=== PATIENT | female | born 1940 | race Caucasian/White ===

== ENCOUNTER 2020-07-17 19:28 | Inpatient (IN) ==
[2020-07-17] MEDS ORDERED: Naloxone 0.4 MG/ML INJ IVP PRN (23:20)
[2020-07-17] MEDS ORDERED: 0.9 % Sodium Chloride 500 ML IVC ONE (23:23)
[2020-07-18 00:32] LABS: Hematocrit 33.8 % (35.3-44.9); Hemoglobin 11.5 g/dL (11.5-15.4); INR 1.4; Immature Platelets 6.1 % (1.1-6.1); Mean Corpuscular Hemoglobin 30.5 pg (28.0-33.3); Mean Corpuscular Volume 89.7 fL (83.0-100.0); Mean Platelet Volume 10.4 fL (9.4-12.4); Prothrombin Time 15.7 Seconds (9.4-12.1); Red Blood Count 3.77 M/mcL (3.82-4.97); Red Cell Distribution Width 13.1 % (11.5-14.5); White Blood Count 3.3 K/mcL (4.3-11.1)
[2020-07-18 00:35] LABS: Activated Partial Thrombo Time 36.1 Seconds (26.0-36.0)
[2020-07-18 00:39] LABS: Albumin 3.3 g/dL (3.5-5.7); Albumin/Globulin Ratio 1.1 (1.1-2.2); Bilirubin,Total 1.7 mg/dL (0.3-1.0); Calcium 9.5 mg/dL (8.6-10.3); Globulin 2.9 g/dL (2.4-3.5); Potassium 4.3 mEq/L (3.5-5.1); Total Protein 6.2 g/dL (6.4-8.9)
[2020-07-18] MEDS: 0.9 % Sodium Chloride 1,000 ML IVC SCH ×2 (03:01→15:03)
[2020-07-18 03:23] LABS: Bacteria,Urine Few per hpf (None-Few); Bilirubin,Urine Negative (Negative); Blood,Urine Trace (Negative); Clarity,Urine Clear (Clear); Color,Urine Yellow (Yellow); Glucose,Urine (UA) 50 mg/dL (Normal); Hyaline Casts,Urine Few per lpf (None Seen); Ketones,Urine 10 mg/dL (Negative); Leukocyte Esterase,Urine Large (Negative); Mucus,Urine Few per lpf (None-Few); Nitrite,Urine Negative (Negative); PH,Urine 5.5 pH Units (5.0-8.0); Protein,Urine Negative (Neg-Trace); Specific Gravity,Urine 1.012 (1.010-1.025); Squamous Epithelial Cell,Urine Few per hpf (None-Few); Urobilinogen,Urine Normal (Normal); WBC,Urine 15-30 per hpf (0-3)
[2020-07-18] MEDS: cefTRIAXone 1,000 MG in 0.9 % Sodium Chloride Mini Bag 100 ML IVPB SCH (08:22)
[2020-07-18] MEDS ORDERED: Gadolinium Contrast Agent (WT Based) IV PRN (10:39)
[2020-07-18] MEDS ORDERED: Dextrose Gel 15 GM/37.5 ML TUBE PO PRN (11:46)
[2020-07-18] MEDS ORDERED: *HR* Dextrose 50 % in Water (Vial) 50 ML VIAL ONE (12:02)
[2020-07-18] MEDS: *HR* Dextrose 50 % in Water (Vial) 50 ML VIAL IVP PRN (12:39)
[2020-07-18] MEDS: Dextrose Gel 15 GM/37.5 ML TUBE PO PRN (15:35)
[2020-07-18 16:00] LABS: Calcium 9.5 mg/dL (8.6-10.3)
[2020-07-19] MEDS: 0.9 % Sodium Chloride 1,000 ML IVC SCH ×2 (06:06→19:04)
[2020-07-19 06:10] LABS: Thyroid Stimulating Hormone 10.352 mcIU/mL (0.340-5.600)
[2020-07-19] MEDS: ARIPiprazole 2 MG TABLET PO SCH (09:14)
[2020-07-19] MEDS: Aspirin Enteric Coated 81 MG Tablet PO SCH (09:14)
[2020-07-19] MEDS: cefTRIAXone 1,000 MG in 0.9 % Sodium Chloride Mini Bag 100 ML IVPB SCH (09:14)
[2020-07-19 09:17] LABS: Basophils % 0.3 %; Eosinophils # 0.2 K/mcL (0.0-0.6); Eosinophils % 7.7 %; Hemoglobin 11.1 g/dL (11.5-15.4); Lymphocytes # 1.2 K/mcL (0.6-4.6); Lymphocytes % 40.8 %; Mean Corpuscular HGB Conc 33.6 g/dL (31.6-35.5); Mean Corpuscular Hemoglobin 30.2 pg (28.0-33.3); Mean Corpuscular Volume 89.9 fL (83.0-100.0); Mean Platelet Volume 10.4 fL (9.4-12.4); Monocytes # 0.5 K/mcL (0.0-1.3); Monocytes % 15.7 %; Neutrophils # 1.1 K/mcL (1.6-8.9); Platelet Count 141 K/mcL (140-400); Red Blood Count 3.67 M/mcL (3.82-4.97); Segmented Neutrophils % 35.5 %
[2020-07-19] MEDS: carvediloL 25 MG TABLET PO SCH ×2 (09:19→19:06)
[2020-07-19 09:41] LABS: BUN/Creatinine Ratio 13 (6-26); Blood Urea Nitrogen 12 mg/dL (8-23); Carbon Dioxide 21 mEq/L (23-29); Chloride 99 mEq/L (98-107); Potassium 4.6 mEq/L (3.5-5.1); Sodium 128 mEq/L (136-145); eGFR For African Americans > 60 (> 60)
[2020-07-19 09:42] LABS: Glucose 68 mg/dL (70-105); Osmolality,Calculated 264 (280-300); eGFR For Non-African Americans 58 (> 60)
[2020-07-19 10:30] LABS: Alanine Aminotransferase 9 Units/L (7-52); Albumin 3.2 g/dL (3.5-5.7); Albumin/Globulin Ratio 1.2 (1.1-2.2); Alkaline Phosphatase 43 Units/L (34-104); Aspartate Amino Transferase 31 Units/L (13-39); Globulin 2.6 g/dL (2.4-3.5); Total Protein 5.8 g/dL (6.4-8.9)
[2020-07-19] MEDS ORDERED: 0.9 % Sodium Chloride 500 ML ONE (17:49)
[2020-07-19] MEDS ORDERED: Albumin 25% 25gram/100mL 25 GM/100 ML IV.SOLN IVPB ONE (19:39)
[2020-07-19] MEDS: Mirtazapine 15 MG TABLET PO SCH (19:56)
[2020-07-20 07:16] LABS: Basophils % 0.3 %; Mean Corpuscular Volume 92.1 fL (83.0-100.0); Mean Platelet Volume 10.6 fL (9.4-12.4)
[2020-07-20 07:17] LABS: Eosinophils # 0.2 K/mcL (0.0-0.6); Eosinophils % 6.6 %; Hematocrit 34.9 % (35.3-44.9); Hemoglobin 11.3 g/dL (11.5-15.4); Immature Granulocytes % 0.3 % (0-4); Immature Platelets 6.1 % (1.1-6.1); Lymphocytes % 36.7 %; Mean Corpuscular HGB Conc 32.4 g/dL (31.6-35.5); Mean Corpuscular Hemoglobin 29.8 pg (28.0-33.3); Monocytes % 13.1 %; Platelet Count 147 K/mcL (140-400); Red Blood Count 3.79 M/mcL (3.82-4.97); White Blood Count 3.4 K/mcL (4.3-11.1)
[2020-07-20 07:18] LABS: Lymphocytes # 1.3 K/mcL (0.6-4.6); Monocytes # 0.5 K/mcL (0.0-1.3); Neutrophils # 1.5 K/mcL (1.6-8.9)
[2020-07-20] MEDS: D5% in Water 1,000 ML IVC PRN (07:20)
[2020-07-20 07:33] LABS: BUN/Creatinine Ratio 10 (6-26); Blood Urea Nitrogen 9 mg/dL (8-23); Calcium 8.8 mg/dL (8.6-10.3); Carbon Dioxide 21 mEq/L (23-29); Chloride 102 mEq/L (98-107); Glucose 63 mg/dL (70-105); Osmolality,Calculated 267 (280-300); Potassium 4.6 mEq/L (3.5-5.1); Sodium 130 mEq/L (136-145); eGFR For African Americans > 60 (> 60); eGFR For Non-African Americans > 60 (> 60)
[2020-07-20] MEDS: cefTRIAXone 1,000 MG in 0.9 % Sodium Chloride Mini Bag 100 ML IVPB SCH (09:50)
[2020-07-20] MEDS: ARIPiprazole 2 MG TABLET PO SCH (09:51)
[2020-07-20] MEDS: Aspirin Enteric Coated 81 MG Tablet PO SCH (09:53)
[2020-07-20] MEDS: carvediloL 25 MG TABLET PO SCH ×2 (10:05→17:08)
[2020-07-20] MEDS: Ondansetron 4 MG/2 ML VIAL IVP PRN (10:24)
[2020-07-20] MEDS: 0.9 % Sodium Chloride 1,000 ML IVC SCH ×2 (20:35→20:39)
[2020-07-20] MEDS: Mirtazapine 15 MG TABLET PO SCH (20:39)
[2020-07-21] MEDS: D5% in Water 1,000 ML IVC PRN ×2 (00:31→18:59)
[2020-07-21 05:54] LABS: Eosinophils # 0.3 K/mcL (0.0-0.6); Eosinophils % 8.5 %; Hematocrit 32.3 % (35.3-44.9); Hemoglobin 10.8 g/dL (11.5-15.4); Immature Platelets 4.9 % (1.1-6.1); Lymphocytes # 1.5 K/mcL (0.6-4.6); Lymphocytes % 49.2 %; Mean Corpuscular HGB Conc 33.4 g/dL (31.6-35.5); Mean Corpuscular Hemoglobin 30.3 pg (28.0-33.3); Mean Corpuscular Volume 90.7 fL (83.0-100.0); Mean Platelet Volume 10.6 fL (9.4-12.4); Monocytes # 0.5 K/mcL (0.0-1.3); Monocytes % 14.8 %; Platelet Count 133 K/mcL (140-400); Red Blood Count 3.56 M/mcL (3.82-4.97); Segmented Neutrophils % 27.5 %; White Blood Count 3.1 K/mcL (4.3-11.1)
[2020-07-21 05:56] LABS: Neutrophils # 0.9 K/mcL (1.6-8.9)
[2020-07-21 06:06] LABS: BUN/Creatinine Ratio 8 (6-26); Blood Urea Nitrogen 6 mg/dL (8-23); Calcium 8.2 mg/dL (8.6-10.3); Carbon Dioxide 20 mEq/L (23-29); Chloride 100 mEq/L (98-107); Glucose 95 mg/dL (70-105); Osmolality,Calculated 255 (280-300); Potassium 4.1 mEq/L (3.5-5.1); Sodium 124 mEq/L (136-145); eGFR For African Americans > 60 (> 60); eGFR For Non-African Americans > 60 (> 60)
[2020-07-21] MEDS: Aspirin Enteric Coated 81 MG Tablet PO SCH (08:45)
[2020-07-21] MEDS: Ondansetron 4 MG/2 ML VIAL IVP PRN ×2 (08:45→20:34)
[2020-07-21] MEDS: ARIPiprazole 2 MG TABLET PO SCH (08:45)
[2020-07-21] MEDS: cefTRIAXone 1,000 MG in 0.9 % Sodium Chloride Mini Bag 100 ML IVPB SCH (08:46)
[2020-07-21] MEDS: Scopolamine Patch 1.5 MG PATCH.TD72 TD SCH (11:48)
[2020-07-21] MEDS: carvediloL 25 MG TABLET PO SCH ×2 (11:49→20:29)
[2020-07-21 14:06] LABS: % Iron Saturation 24 % (15-50); Iron 52 mcg/dL (50-170); Transferrin 154 mg/dL (203-362)
[2020-07-21 14:21] LABS: Immature Reticulocyte % 4.4 % (11.0-38.0); Retculocyte # 0.03 M/mcL (0.05-0.10); Reticulocyte % 0.8 % (1.6-2.8)
[2020-07-21 14:51] LABS: Folate 17.8 ng/mL (3.0-16.0)
[2020-07-21] MEDS: Mirtazapine 15 MG TABLET PO SCH (20:34)
[2020-07-21] MEDS: 0.9 % Sodium Chloride 1,000 ML IVC SCH (20:35)
[2020-07-22 00:49] LABS: Red Cell Distribution Width 12.7 % (11.5-14.5)
[2020-07-22 00:50] LABS: Basophils % 0.3 %; Eosinophils # 0.2 K/mcL (0.0-0.6); Eosinophils % 6.7 %; Hematocrit 35.1 % (35.3-44.9); Hemoglobin 12.2 g/dL (11.5-15.4); Immature Platelets 4.1 % (1.1-6.1); Lymphocytes # 1.6 K/mcL (0.6-4.6); Lymphocytes % 44.1 %; Mean Corpuscular HGB Conc 34.8 g/dL (31.6-35.5); Mean Corpuscular Volume 89.3 fL (83.0-100.0); Mean Platelet Volume 10.5 fL (9.4-12.4); Monocytes # 0.5 K/mcL (0.0-1.3); Monocytes % 13.5 %; Neutrophils # 1.3 K/mcL (1.6-8.9); Platelet Count 150 K/mcL (140-400); Red Blood Count 3.93 M/mcL (3.82-4.97); Segmented Neutrophils % 35.4 %; White Blood Count 3.6 K/mcL (4.3-11.1)
[2020-07-22 01:07] LABS: BUN/Creatinine Ratio 5 (6-26); Blood Urea Nitrogen 4 mg/dL (8-23); Calcium 8.1 mg/dL (8.6-10.3); Carbon Dioxide 20 mEq/L (23-29); Chloride 99 mEq/L (98-107); Glucose 89 mg/dL (70-105); Osmolality,Calculated 256 (280-300); Potassium 3.8 mEq/L (3.5-5.1); Sodium 125 mEq/L (136-145); eGFR For African Americans > 60 (> 60); eGFR For Non-African Americans > 60 (> 60)
[2020-07-22 01:10] LABS: Albumin 3.1 g/dL (3.5-5.7); Albumin/Globulin Ratio 1.2 (1.1-2.2); Bilirubin,Direct 0.2 mg/dL (0.0-0.2); Bilirubin,Indirect 0.5 mg/dL (0.0-1.0); Bilirubin,Total 0.7 mg/dL (0.3-1.0); Globulin 2.5 g/dL (2.4-3.5); Total Protein 5.6 g/dL (6.4-8.9)
[2020-07-22] MEDS: D5% in Water 1,000 ML IVC PRN (05:25)
[2020-07-22] MEDS: 0.9 % Sodium Chloride 1,000 ML IVC SCH ×2 (05:49→15:51)
[2020-07-22] MEDS: Aspirin Enteric Coated 81 MG Tablet PO SCH (09:03)
[2020-07-22] MEDS: Ondansetron 4 MG/2 ML VIAL IVP PRN (09:03)
[2020-07-22] MEDS: ARIPiprazole 2 MG TABLET PO SCH (09:04)
[2020-07-22] MEDS: carvediloL 25 MG TABLET PO SCH ×2 (09:04→19:48)
[2020-07-22] MEDS: cefTRIAXone 1,000 MG in 0.9 % Sodium Chloride Mini Bag 100 ML IVPB SCH (09:05)
[2020-07-22] MEDS ORDERED: Azithromycin 250 MG TABLET PO SCH (16:15)
[2020-07-22] MEDS ORDERED: levoFLOXacin 750 MG/150 ML 750 MG/150 ML BAG IVPB SCH (18:15)
[2020-07-22] MEDS: Mirtazapine 15 MG TABLET PO SCH (21:10)
[2020-07-22] MEDS: Ipratropium/Albuterol Neb 3 ML IH SCH (22:37)
[2020-07-23] MEDS: Ipratropium/Albuterol Neb 3 ML IH SCH ×4 (04:11→22:34)
[2020-07-23 05:42] LABS: Basophils % 0.3 %; Eosinophils # 0.2 K/mcL (0.0-0.6); Eosinophils % 7.2 %; Hematocrit 32.1 % (35.3-44.9); Hemoglobin 10.9 g/dL (11.5-15.4); Immature Platelets 6.2 % (1.1-6.1); Lymphocytes # 1.6 K/mcL (0.6-4.6); Lymphocytes % 49.1 %; Mean Corpuscular Hemoglobin 30.3 pg (28.0-33.3); Mean Corpuscular Volume 89.2 fL (83.0-100.0); Mean Platelet Volume 10.5 fL (9.4-12.4); Monocytes # 0.5 K/mcL (0.0-1.3); Monocytes % 15.4 %; Neutrophils # 0.9 K/mcL (1.6-8.9); Platelet Count 133 K/mcL (140-400); Red Cell Distribution Width 12.5 % (11.5-14.5); White Blood Count 3.2 K/mcL (4.3-11.1)
[2020-07-23 05:59] LABS: BUN/Creatinine Ratio 5 (6-26); Blood Urea Nitrogen 4 mg/dL (8-23); Calcium 7.8 mg/dL (8.6-10.3); Carbon Dioxide 20 mEq/L (23-29); Chloride 96 mEq/L (98-107); Glucose 74 mg/dL (70-105); Osmolality,Calculated 252 (280-300); Potassium 4.1 mEq/L (3.5-5.1); Sodium 123 mEq/L (136-145); eGFR For African Americans > 60 (> 60); eGFR For Non-African Americans > 60 (> 60)
[2020-07-23] MEDS: Ondansetron 4 MG/2 ML VIAL IVP PRN ×2 (09:21→22:46)
[2020-07-23] MEDS: carvediloL 25 MG TABLET PO SCH ×2 (09:23→18:55)
[2020-07-23] MEDS: Aspirin Enteric Coated 81 MG Tablet PO SCH (09:23)
[2020-07-23] MEDS: ARIPiprazole 2 MG TABLET PO SCH (09:23)
[2020-07-23] MEDS: 0.9 % Sodium Chloride 1,000 ML IVC SCH ×2 (09:27→23:41)
[2020-07-23] MEDS: Mirtazapine 15 MG TABLET PO SCH (20:19)
[2020-07-23] MEDS: levoFLOXacin 750 MG/150 ML 750 MG/150 ML BAG IVPB SCH (20:19)
[2020-07-23] MEDS: Dextrose Gel 15 GM/37.5 ML TUBE PO PRN (22:24)
[2020-07-23] MEDS: *HR* Dextrose 50 % in Water (Vial) 50 ML VIAL IVP PRN (23:00)
[2020-07-24 01:03] LABS: Basophils % 0.3 %; Red Cell Distribution Width 12.9 % (11.5-14.5)
[2020-07-24 01:05] LABS: Eosinophils # 0.2 K/mcL (0.0-0.6); Eosinophils % 6.1 %; Hematocrit 33.3 % (35.3-44.9); Hemoglobin 11.2 g/dL (11.5-15.4); Immature Granulocytes % 0.3 % (0-4); Immature Platelets 5.8 % (1.1-6.1); Lymphocytes # 1.5 K/mcL (0.6-4.6); Lymphocytes % 48.1 %; Mean Corpuscular HGB Conc 33.6 g/dL (31.6-35.5); Mean Corpuscular Hemoglobin 30.4 pg (28.0-33.3); Mean Corpuscular Volume 90.5 fL (83.0-100.0); Mean Platelet Volume 10.5 fL (9.4-12.4); Monocytes # 0.5 K/mcL (0.0-1.3); Monocytes % 16.8 %; Neutrophils # 0.9 K/mcL (1.6-8.9); Platelet Count 144 K/mcL (140-400); Red Blood Count 3.68 M/mcL (3.82-4.97); Segmented Neutrophils % 28.4 %; White Blood Count 3.1 K/mcL (4.3-11.1)
[2020-07-24 01:23] LABS: BUN/Creatinine Ratio 5 (6-26); Blood Urea Nitrogen 4 mg/dL (8-23); Calcium 7.9 mg/dL (8.6-10.3); Carbon Dioxide 24 mEq/L (23-29); Chloride 98 mEq/L (98-107); Glucose 65 mg/dL (70-105); Osmolality,Calculated 259 (280-300); Potassium 3.7 mEq/L (3.5-5.1); Sodium 127 mEq/L (136-145); eGFR For African Americans > 60 (> 60); eGFR For Non-African Americans > 60 (> 60)
[2020-07-24] MEDS: *HR* Dextrose 50 % in Water (Vial) 50 ML VIAL IVP PRN (04:10)
[2020-07-24] MEDS: Ipratropium/Albuterol Neb 3 ML IH SCH ×4 (04:28→20:19)
[2020-07-24] MEDS: D5% in Water 1,000 ML IVC PRN (06:02)
[2020-07-24] MEDS: carvediloL 25 MG TABLET PO SCH ×2 (07:40→16:21)
[2020-07-24] MEDS: ARIPiprazole 2 MG TABLET PO SCH (07:40)
[2020-07-24] MEDS: Aspirin Enteric Coated 81 MG Tablet PO SCH (07:40)
[2020-07-24] MEDS: Scopolamine Patch 1.5 MG PATCH.TD72 TD SCH (07:41)
[2020-07-24] MEDS: Ondansetron 4 MG/2 ML VIAL IVP PRN ×2 (10:04→21:21)
[2020-07-24] MEDS: 0.9 % Sodium Chloride 1,000 ML IVC SCH (16:22)
[2020-07-24] MEDS: levoFLOXacin 750 MG/150 ML 750 MG/150 ML BAG IVPB SCH (21:21)
[2020-07-24] MEDS: Mirtazapine 15 MG TABLET PO SCH (21:21)
[2020-07-25 01:44] LABS: Basophils % 0.3 %; Eosinophils # 0.3 K/mcL (0.0-0.6); Eosinophils % 7.5 %; Hematocrit 31.9 % (35.3-44.9); Hemoglobin 10.8 g/dL (11.5-15.4); Immature Granulocytes % 0.3 % (0-4); Lymphocytes # 1.6 K/mcL (0.6-4.6); Mean Corpuscular HGB Conc 33.9 g/dL (31.6-35.5); Mean Corpuscular Volume 88.6 fL (83.0-100.0); Mean Platelet Volume 10.5 fL (9.4-12.4); Monocytes # 0.5 K/mcL (0.0-1.3); Monocytes % 15.3 %; Platelet Count 113 K/mcL (140-400); Red Cell Distribution Width 12.6 % (11.5-14.5); Segmented Neutrophils % 28.6 %; White Blood Count 3.3 K/mcL (4.3-11.1)
[2020-07-25 02:05] LABS: BUN/Creatinine Ratio 4 (6-26); Blood Urea Nitrogen 3 mg/dL (8-23); Calcium 7.6 mg/dL (8.6-10.3); Carbon Dioxide 19 mEq/L (23-29); Chloride 96 mEq/L (98-107); Glucose 71 mg/dL (70-105); Osmolality,Calculated 249 (280-300); Potassium 3.9 mEq/L (3.5-5.1); Sodium 122 mEq/L (136-145); eGFR For African Americans > 60 (> 60); eGFR For Non-African Americans > 60 (> 60)
[2020-07-25] MEDS: Ipratropium/Albuterol Neb 3 ML IH SCH ×4 (04:12→22:12)
[2020-07-25] MEDS: Aspirin Enteric Coated 81 MG Tablet PO SCH (07:59)
[2020-07-25] MEDS: ARIPiprazole 2 MG TABLET PO SCH (07:59)
[2020-07-25] MEDS: carvediloL 25 MG TABLET PO SCH ×2 (07:59→16:17)
[2020-07-25] MEDS: Cyanocobalamin (B-12) 1,000 MCG TABLET PO SCH (10:00)
[2020-07-25] MEDS: D5% in Water 1,000 ML IVC PRN ×2 (11:27→22:45)
[2020-07-25] MEDS ORDERED: polyethylene glycoL 3350 17 GM POWD.PACK PO PRN (18:23)
[2020-07-25 19:08] LABS: BUN/Creatinine Ratio 4 (6-26); Blood Urea Nitrogen 3 mg/dL (8-23); Calcium 7.6 mg/dL (8.6-10.3); Carbon Dioxide 22 mEq/L (23-29); Chloride 92 mEq/L (98-107); Glucose 83 mg/dL (70-105); Magnesium 0.7 mg/dL (1.6-2.6); Osmolality,Calculated 246 (280-300); Phosphorous 2.9 mg/dL (2.7-4.5); Potassium 3.7 mEq/L (3.5-5.1); Sodium 120 mEq/L (136-145); eGFR For African Americans > 60 (> 60); eGFR For Non-African Americans > 60 (> 60)
[2020-07-25 19:17] LABS: VBG Ionized Calcium 1.02 mmol/L (1.15-1.35)
[2020-07-25] MEDS: Mirtazapine 15 MG TABLET PO SCH (22:45)
[2020-07-25] MEDS: Ondansetron 4 MG/2 ML VIAL IVP PRN (23:08)
[2020-07-26 01:58] LABS: Alpha 2 Globulin (PEP) 0.62 g/dL (0.48-1.05); Beta Globulin (PEP) 0.56 g/dL (0.48-1.10)
[2020-07-26 03:15] LABS: Mean Corpuscular HGB Conc 33.8 g/dL (31.6-35.5)
[2020-07-26 03:16] LABS: Immature Reticulocyte % 4.8 % (11.0-38.0); Retculocyte # 0.04 M/mcL (0.05-0.10)
[2020-07-26 03:17] LABS: Hematocrit 34.9 % (35.3-44.9); Hemoglobin 11.8 g/dL (11.5-15.4); Immature Platelets 6.8 % (1.1-6.1); Mean Corpuscular Hemoglobin 29.9 pg (28.0-33.3); Mean Corpuscular Volume 88.6 fL (83.0-100.0); Mean Platelet Volume 10.5 fL (9.4-12.4); Red Blood Count 3.94 M/mcL (3.82-4.97); Red Cell Distribution Width 12.3 % (11.5-14.5); White Blood Count 3.9 K/mcL (4.3-11.1)
[2020-07-26 03:36] LABS: BUN/Creatinine Ratio 4 (6-26); Blood Urea Nitrogen 3 mg/dL (8-23); Calcium 7.9 mg/dL (8.6-10.3); Carbon Dioxide 20 mEq/L (23-29); Chloride 89 mEq/L (98-107); Glucose 84 mg/dL (70-105); Osmolality,Calculated 242 (280-300); Potassium 3.5 mEq/L (3.5-5.1); Sodium 118 mEq/L (136-145); eGFR For African Americans > 60 (> 60); eGFR For Non-African Americans > 60 (> 60)
[2020-07-26 03:50] LABS: Thyroid Stimulating Hormone 17.826 mcIU/mL (0.340-5.600)
[2020-07-26 03:57] LABS: Triiodothyronine (T3) Total 0.86 ng/mL (0.87-1.78)
[2020-07-26] MEDS: Ipratropium/Albuterol Neb 3 ML IH SCH ×4 (04:14→21:57)
[2020-07-26] MEDS ORDERED: 0.9 % Sodium Chloride 1,000 ML IVC SCH (08:15)
[2020-07-26] MEDS: Ondansetron 4 MG/2 ML VIAL IVP PRN ×2 (08:59→20:09)
[2020-07-26] MEDS ORDERED: levoFLOXacin 750 MG TABLET PO SCH (09:00)
[2020-07-26] MEDS: ARIPiprazole 2 MG TABLET PO SCH (09:46)
[2020-07-26] MEDS: Aspirin Enteric Coated 81 MG Tablet PO SCH (09:46)
[2020-07-26] MEDS: carvediloL 25 MG TABLET PO SCH ×2 (09:46→17:22)
[2020-07-26] MEDS: Cyanocobalamin (B-12) 1,000 MCG TABLET PO SCH (09:47)
[2020-07-26 09:53] LABS: IFE Reflexed NOT DONE
[2020-07-26] MEDS ORDERED: Tolvaptan 15 MG TABLET PO ONE (09:56)
[2020-07-26] MEDS: 0.9 % Sodium Chloride 1,000 ML IVC SCH (10:32)
[2020-07-26] MEDS: Metoclopramide 10 MG/2 ML VIAL IVP SCH ×2 (11:57→17:22)
[2020-07-26] MEDS: Mirtazapine 15 MG TABLET PO SCH (20:09)
[2020-07-27 01:14] LABS: Hematocrit 29.4 % (35.3-44.9); Hemoglobin 10.3 g/dL (11.5-15.4); Mean Corpuscular Hemoglobin 30.6 pg (28.0-33.3); Mean Corpuscular Volume 87.2 fL (83.0-100.0); Mean Platelet Volume 10.7 fL (9.4-12.4); Red Blood Count 3.37 M/mcL (3.82-4.97); Red Cell Distribution Width 12.3 % (11.5-14.5)
[2020-07-27 01:15] LABS: BUN/Creatinine Ratio 4 (6-26); Blood Urea Nitrogen 3 mg/dL (8-23); Calcium 7.5 mg/dL (8.6-10.3); Carbon Dioxide 21 mEq/L (23-29); Chloride 90 mEq/L (98-107); Glucose 80 mg/dL (70-105); Magnesium 1.5 mg/dL (1.6-2.6); Osmolality,Calculated 238 (280-300); Phosphorous 3.1 mg/dL (2.7-4.5); Potassium 3.6 mEq/L (3.5-5.1); Sodium 116 mEq/L (136-145); eGFR For African Americans > 60 (> 60); eGFR For Non-African Americans > 60 (> 60)
[2020-07-27] MEDS ORDERED: Tolvaptan 15 MG TABLET PO ONE (01:19)
[2020-07-27] MEDS ORDERED: 0.9 % Sodium Chloride 500 ML ONE (01:23)
[2020-07-27] MEDS: 0.9 % Sodium Chloride 500 ML IVC ONE ×2 (01:26→02:44)
[2020-07-27] MEDS: *HR* Dextrose 50 % in Water (Vial) 50 ML VIAL IVP PRN (03:27)
[2020-07-27] MEDS: D5% in Water 1,000 ML IVC PRN (03:29)
[2020-07-27] MEDS ORDERED: 0.9 % Sodium Chloride 1,000 ML ONE (04:10)
[2020-07-27] MEDS ORDERED: 0.9 % Sodium Chloride 1,000 ML IVC ONE ×2 (04:16→06:12)
[2020-07-27] MEDS: Ipratropium/Albuterol Neb 3 ML IH SCH ×4 (04:16→21:06)
[2020-07-27] MEDS ORDERED: Hydrocortisone Sodium Succ 100 MG/2 ML VIAL IVP ONE (06:12)
[2020-07-27] MEDS: Levothyroxine Sodium 100 MCG VIAL IVP SCH (06:31)
[2020-07-27] MEDS ORDERED: Ringers Solution, Lactated 1,000 ML IVC SCH (07:30)
[2020-07-27] MEDS: Metoclopramide 10 MG/2 ML VIAL IVP SCH (07:52)
[2020-07-27] MEDS: Hydrocortisone Sodium Succ 100 MG/2 ML VIAL IVP SCH ×3 (07:52→23:15)
[2020-07-27] MEDS: Scopolamine Patch 1.5 MG PATCH.TD72 TD SCH (07:52)
[2020-07-27] MEDS ORDERED: Hydrocortisone 10 MG TABLET PO SCH (09:00)
[2020-07-27 10:27] LABS: VBG Ionized Calcium 1.03 mmol/L (1.15-1.35)
[2020-07-27 10:39] LABS: BUN/Creatinine Ratio 5 (6-26); Blood Urea Nitrogen 4 mg/dL (8-23); Calcium 7.8 mg/dL (8.6-10.3); Carbon Dioxide 20 mEq/L (23-29); Chloride 99 mEq/L (98-107); Glucose 100 mg/dL (70-105); Osmolality,Calculated 257 (280-300); Phosphorous 2.8 mg/dL (2.7-4.5); Potassium 3.8 mEq/L (3.5-5.1); Sodium 125 mEq/L (136-145); eGFR For African Americans > 60 (> 60); eGFR For Non-African Americans > 60 (> 60)
[2020-07-27 11:19] LABS: Adenovirus Not Detected (Not Detect); Coronavirus 229E Not Detected (Not Detect); Coronavirus HKU1 Not Detected (Not Detect); Coronavirus NL63 Not Detected (Not Detect); Coronavirus OC43 Not Detected (Not Detect)
[2020-07-27 11:20] LABS: Bordetella Pertussis Not Detected (Not Detect); Chlamydophila pneumoniae Not Detected (Not Detect); Human Metapneumovirus Not Detected (Not Detect); Human Rhinovirus/Enterovirus Not Detected (Not Detect); Influenza A Subtype 2009 H1 Not Detected (Not Detect); Influenza B Not Detected (Not Detect); Mycoplasma pneumoniae Not Detected (Not Detect); Parainfluenza Virus 1 Not Detected (Not Detect); Parainfluenza Virus 2 Not Detected (Not Detect); Parainfluenza Virus 3 Not Detected (Not Detect); Parainfluenza Virus 4 Not Detected (Not Detect); Respiratory Syncytial Virus Not Detected (Not Detect); SARS-CoV-2 Not Detected (Not Detect)
[2020-07-27] MEDS: Norepinephrine 4 MG/254 ML IV.SOLN IVC SCH ×2 (11:46→20:00)
[2020-07-27 11:49] LABS: Bilirubin,Urine Negative (Negative); Blood,Urine Small (Negative); Clarity,Urine Clear (Clear); Color,Urine Colorless (Yellow); Glucose,Urine (UA) Normal (Normal); Ketones,Urine Negative (Negative); Leukocyte Esterase,Urine Negative (Negative); Mucus,Urine Few per lpf (None-Few); Nitrite,Urine Negative (Negative); Protein,Urine Negative (Neg-Trace); RBC,Urine 0-3 per hpf (0-3); Specific Gravity,Urine < 1.005 (1.010-1.025); Urobilinogen,Urine Normal (Normal); WBC,Urine 0-3 per hpf (0-3)
[2020-07-27 14:25] LABS: Alanine Aminotransferase 14 Units/L (7-52); Albumin 3.2 g/dL (3.5-5.7); Albumin/Globulin Ratio 1.2 (1.1-2.2); Alkaline Phosphatase 51 Units/L (34-104); Aspartate Amino Transferase 46 Units/L (13-39); BUN/Creatinine Ratio 6 (6-26); Bilirubin,Total 1.2 mg/dL (0.3-1.0); Blood Urea Nitrogen 4 mg/dL (8-23); Calcium 8.2 mg/dL (8.6-10.3); Carbon Dioxide 17 mEq/L (23-29); Chloride 100 mEq/L (98-107); Globulin 2.6 g/dL (2.4-3.5); Glucose 173 mg/dL (70-105); Osmolality,Calculated 265 (280-300); Sodium 127 mEq/L (136-145); Total Protein 5.8 g/dL (6.4-8.9); eGFR For African Americans > 60 (> 60); eGFR For Non-African Americans > 60 (> 60)
[2020-07-27 18:41] LABS: Phosphorous 2.8 mg/dL (2.7-4.5)
[2020-07-27] MEDS: D10% in Water 500 ML IVC SCH (19:25)
[2020-07-28] MEDS: D10% in Water 500 ML IVC SCH ×2 (02:05→09:11)
[2020-07-28 03:29] LABS: VBG Ionized Calcium 1.16 mmol/L (1.15-1.35)
[2020-07-28 03:29] LABS: Hematocrit 30.9 % (35.3-44.9); Hemoglobin 10.9 g/dL (11.5-15.4); Immature Granulocytes % 0.5 % (0-4); Lymphocytes # 0.7 K/mcL (0.6-4.6); Lymphocytes % 32.2 %; Mean Corpuscular HGB Conc 35.3 g/dL (31.6-35.5); Mean Corpuscular Hemoglobin 30.3 pg (28.0-33.3); Mean Corpuscular Volume 85.8 fL (83.0-100.0); Mean Platelet Volume 10.1 fL (9.4-12.4); Monocytes # 0.1 K/mcL (0.0-1.3); Monocytes % 4.9 %; Neutrophils # 1.3 K/mcL (1.6-8.9); Platelet Count 144 K/mcL (140-400); Red Cell Distribution Width 12.4 % (11.5-14.5); Segmented Neutrophils % 62.4 %; White Blood Count 2.1 K/mcL (4.3-11.1)
[2020-07-28] MEDS: Ipratropium/Albuterol Neb 3 ML IH SCH ×4 (03:49→22:45)
[2020-07-28 03:54] LABS: Alanine Aminotransferase 11 Units/L (7-52); Albumin 2.9 g/dL (3.5-5.7); Albumin/Globulin Ratio 1.2 (1.1-2.2); Alkaline Phosphatase 42 Units/L (34-104); Aspartate Amino Transferase 31 Units/L (13-39); BUN/Creatinine Ratio 8 (6-26); Bilirubin,Total 0.9 mg/dL (0.3-1.0); Blood Urea Nitrogen 6 mg/dL (8-23); Calcium 8.2 mg/dL (8.6-10.3); Carbon Dioxide 18 mEq/L (23-29); Chloride 103 mEq/L (98-107); Globulin 2.4 g/dL (2.4-3.5); Glucose 227 mg/dL (70-105); Magnesium 1.7 mg/dL (1.6-2.6); Osmolality,Calculated 273 (280-300); Potassium 3.6 mEq/L (3.5-5.1); Sodium 129 mEq/L (136-145); Total Protein 5.3 g/dL (6.4-8.9); eGFR For African Americans > 60 (> 60); eGFR For Non-African Americans > 60 (> 60)
[2020-07-28] MEDS: Levothyroxine Sodium 100 MCG VIAL IVP SCH (05:27)
[2020-07-28] MEDS: Hydrocortisone Sodium Succ 100 MG/2 ML VIAL IVP SCH ×3 (07:36→23:57)
[2020-07-28 07:58] LABS: BUN/Creatinine Ratio 9 (6-26); Blood Urea Nitrogen 7 mg/dL (8-23); Calcium 8.5 mg/dL (8.6-10.3); Carbon Dioxide 20 mEq/L (23-29); Chloride 103 mEq/L (98-107); Glucose 229 mg/dL (70-105); Magnesium 1.9 mg/dL (1.6-2.6); Osmolality,Calculated 273 (280-300); Potassium 4.1 mEq/L (3.5-5.1); Sodium 129 mEq/L (136-145); eGFR For African Americans > 60 (> 60); eGFR For Non-African Americans > 60 (> 60)
[2020-07-28] MEDS: Aspirin Enteric Coated 81 MG Tablet PO SCH (09:11)
[2020-07-28] MEDS: Cyanocobalamin (B-12) 1,000 MCG TABLET PO SCH (09:11)
[2020-07-28 12:07] LABS: VBG Ionized Calcium 1.18 mmol/L (1.15-1.35)
[2020-07-28 12:17] LABS: BUN/Creatinine Ratio 10 (6-26); Blood Urea Nitrogen 8 mg/dL (8-23); Calcium 8.5 mg/dL (8.6-10.3); Carbon Dioxide 20 mEq/L (23-29); Chloride 104 mEq/L (98-107); Glucose 189 mg/dL (70-105); Magnesium 1.9 mg/dL (1.6-2.6); Osmolality,Calculated 271 (280-300); Phosphorous 1.6 mg/dL (2.7-4.5); Potassium 4.3 mEq/L (3.5-5.1); Sodium 129 mEq/L (136-145); eGFR For African Americans > 60 (> 60); eGFR For Non-African Americans > 60 (> 60)
[2020-07-28] MEDS: *HR* Heparin 5,000 UNIT/ML VIAL SQ SCH ×2 (14:01→20:38)
[2020-07-28 15:47] LABS: BUN/Creatinine Ratio 11 (6-26); Blood Urea Nitrogen 9 mg/dL (8-23); Calcium 8.6 mg/dL (8.6-10.3); Carbon Dioxide 20 mEq/L (23-29); Chloride 104 mEq/L (98-107); Glucose 166 mg/dL (70-105); Osmolality,Calculated 272 (280-300); Potassium 4.5 mEq/L (3.5-5.1); Sodium 130 mEq/L (136-145); eGFR For African Americans > 60 (> 60); eGFR For Non-African Americans > 60 (> 60)
[2020-07-28 21:57] LABS: VBG Ionized Calcium 1.15 mmol/L (1.15-1.35)
[2020-07-28 22:12] LABS: BUN/Creatinine Ratio 11 (6-26); Blood Urea Nitrogen 9 mg/dL (8-23); Calcium 8.6 mg/dL (8.6-10.3); Carbon Dioxide 22 mEq/L (23-29); Chloride 106 mEq/L (98-107); Glucose 172 mg/dL (70-105); Magnesium 1.9 mg/dL (1.6-2.6); Osmolality,Calculated 279 (280-300); Phosphorous 2.9 mg/dL (2.7-4.5); Potassium 4.3 mEq/L (3.5-5.1); Sodium 133 mEq/L (136-145); eGFR For African Americans > 60 (> 60); eGFR For Non-African Americans > 60 (> 60)
[2020-07-29] MEDS: Ipratropium/Albuterol Neb 3 ML IH SCH ×4 (03:54→22:16)
[2020-07-29 05:34] LABS: Hematocrit 31.3 % (35.3-44.9); Hemoglobin 10.9 g/dL (11.5-15.4); Immature Granulocytes % 0.6 % (0-4); Lymphocytes # 0.6 K/mcL (0.6-4.6); Lymphocytes % 18.5 %; Mean Corpuscular HGB Conc 34.8 g/dL (31.6-35.5); Mean Corpuscular Hemoglobin 30.4 pg (28.0-33.3); Mean Corpuscular Volume 87.4 fL (83.0-100.0); Mean Platelet Volume 10.1 fL (9.4-12.4); Monocytes # 0.1 K/mcL (0.0-1.3); Monocytes % 4.1 %; Neutrophils # 2.6 K/mcL (1.6-8.9); Platelet Count 151 K/mcL (140-400); Red Blood Count 3.58 M/mcL (3.82-4.97); Segmented Neutrophils % 76.8 %
[2020-07-29 05:36] LABS: VBG Ionized Calcium 1.22 mmol/L (1.15-1.35)
[2020-07-29 05:39] LABS: White Blood Count 3.4 K/mcL (4.3-11.1)
[2020-07-29 05:54] LABS: BUN/Creatinine Ratio 12 (6-26); Blood Urea Nitrogen 10 mg/dL (8-23); Calcium 8.8 mg/dL (8.6-10.3); Carbon Dioxide 23 mEq/L (23-29); Chloride 106 mEq/L (98-107); Glucose 149 mg/dL (70-105); Magnesium 1.8 mg/dL (1.6-2.6); Osmolality,Calculated 280 (280-300); Phosphorous 3.2 mg/dL (2.7-4.5); Potassium 4.2 mEq/L (3.5-5.1); Sodium 134 mEq/L (136-145); eGFR For African Americans > 60 (> 60); eGFR For Non-African Americans > 60 (> 60)
[2020-07-29] MEDS: *HR* Heparin 5,000 UNIT/ML VIAL SQ SCH ×3 (06:10→21:18)
[2020-07-29] MEDS: Levothyroxine Sodium 100 MCG VIAL IVP SCH (06:10)
[2020-07-29] MEDS: Hydrocortisone Sodium Succ 100 MG/2 ML VIAL IVP SCH ×2 (08:29→15:25)
[2020-07-29] MEDS: Cyanocobalamin (B-12) 1,000 MCG TABLET PO SCH (08:31)
[2020-07-29] MEDS: Aspirin Enteric Coated 81 MG Tablet PO SCH (08:31)
[2020-07-29] MEDS ORDERED: D5% in Water 1,000 ML IVC PRN (10:17)
[2020-07-29] MEDS ORDERED: Dextrose Gel 15 GM/37.5 ML TUBE PO PRN ×2 (10:17)
[2020-07-29] MEDS ORDERED: Naloxone 0.4 MG/ML INJ IVP PRN (10:17)
[2020-07-29] MEDS ORDERED: Ondansetron 4 MG/2 ML VIAL IVP PRN (10:17)
[2020-07-29] MEDS ORDERED: *HR* Dextrose 50 % in Water (Vial) 50 ML VIAL IVP PRN (10:17)
[2020-07-29] MEDS: Artificial Tears SOLN 15 ML BOTTLE BOTH EYES PRN (15:36)
[2020-07-30] MEDS: Hydrocortisone Sodium Succ 100 MG/2 ML VIAL IVP SCH ×4 (00:43→19:17)
[2020-07-30] MEDS: Ipratropium/Albuterol Neb 3 ML IH SCH ×4 (03:38→22:30)
[2020-07-30] MEDS: *HR* Heparin 5,000 UNIT/ML VIAL SQ SCH ×3 (05:49→21:05)
[2020-07-30] MEDS: Aspirin Enteric Coated 81 MG Tablet PO SCH (09:21)
[2020-07-30] MEDS: Scopolamine Patch 1.5 MG PATCH.TD72 TD SCH (09:22)
[2020-07-30] MEDS: Cyanocobalamin (B-12) 1,000 MCG TABLET PO SCH (09:22)
[2020-07-30 09:53] LABS: BUN/Creatinine Ratio 15 (6-26); Blood Urea Nitrogen 13 mg/dL (8-23); Calcium 8.7 mg/dL (8.6-10.3); Carbon Dioxide 22 mEq/L (23-29); Chloride 105 mEq/L (98-107); Glucose 163 mg/dL (70-105); Osmolality,Calculated 284 (280-300); Potassium 3.8 mEq/L (3.5-5.1); Sodium 135 mEq/L (136-145); eGFR For African Americans > 60 (> 60); eGFR For Non-African Americans > 60 (> 60)
[2020-07-30] MEDS ORDERED: Hydrocortisone Sodium Succ 100 MG/2 ML VIAL IVP SCH (16:00)
[2020-07-30 22:22] LABS: Lambda Qnt Free Light Chains 28.8 mg/L (5.71-26.30)
[2020-07-31] MEDS: Hydrocortisone Sodium Succ 100 MG/2 ML VIAL IVP SCH ×3 (02:38→19:40)
[2020-07-31] MEDS: Ipratropium/Albuterol Neb 3 ML IH SCH ×4 (03:49→22:02)
[2020-07-31 05:00] LABS: BUN/Creatinine Ratio 15 (6-26); Blood Urea Nitrogen 13 mg/dL (8-23); Calcium 8.8 mg/dL (8.6-10.3); Carbon Dioxide 24 mEq/L (23-29); Chloride 103 mEq/L (98-107); Glucose 146 mg/dL (70-105); Osmolality,Calculated 283 (280-300); Potassium 3.8 mEq/L (3.5-5.1); Sodium 135 mEq/L (136-145); eGFR For African Americans > 60 (> 60); eGFR For Non-African Americans > 60 (> 60)
[2020-07-31] MEDS: *HR* Heparin 5,000 UNIT/ML VIAL SQ SCH ×3 (05:29→19:41)
[2020-07-31] MEDS: Cyanocobalamin (B-12) 1,000 MCG TABLET PO SCH (08:53)
[2020-07-31] MEDS: Aspirin Enteric Coated 81 MG Tablet PO SCH (08:53)
[2020-07-31 09:54] LABS: Kappa Qnt Free Light Chains 33.66 mg/L (3.30-19.40)
[2020-08-01] MEDS: Hydrocortisone Sodium Succ 100 MG/2 ML VIAL IVP SCH ×2 (02:56→11:41)
[2020-08-01] MEDS: Ipratropium/Albuterol Neb 3 ML IH SCH ×2 (03:55→10:12)
[2020-08-01] MEDS: *HR* Heparin 5,000 UNIT/ML VIAL SQ SCH ×3 (06:01→21:52)
[2020-08-01 06:20] LABS: Hematocrit 30.2 % (35.3-44.9); Hemoglobin 10.2 g/dL (11.5-15.4); Mean Corpuscular HGB Conc 33.8 g/dL (31.6-35.5); Mean Corpuscular Volume 88.8 fL (83.0-100.0); Mean Platelet Volume 10.2 fL (9.4-12.4); Platelet Count 116 K/mcL (140-400); Red Cell Distribution Width 12.6 % (11.5-14.5); White Blood Count 2.3 K/mcL (4.3-11.1)
[2020-08-01 07:52] LABS: BUN/Creatinine Ratio 15 (6-26); Blood Urea Nitrogen 13 mg/dL (8-23); Calcium 8.3 mg/dL (8.6-10.3); Carbon Dioxide 28 mEq/L (23-29); Chloride 99 mEq/L (98-107); Glucose 157 mg/dL (70-105); Osmolality,Calculated 283 (280-300); Sodium 135 mEq/L (136-145); eGFR For African Americans > 60 (> 60); eGFR For Non-African Americans > 60 (> 60)
[2020-08-01] MEDS ORDERED: Potassium Chloride Elixir 20 MEQ/15 ML UDC PO SCH (08:45)
[2020-08-01] MEDS: Cyanocobalamin (B-12) 1,000 MCG TABLET PO SCH (09:30)
[2020-08-01] MEDS: Aspirin Enteric Coated 81 MG Tablet PO SCH (09:30)
[2020-08-01 15:19] LABS: Alpha 2 Globulin (PEP) 0.67 g/dL (0.48-1.05); Beta Globulin (PEP) 0.57 g/dL (0.48-1.10)
[2020-08-01] MEDS ORDERED: Hydrocortisone Sodium Succ 100 MG/2 ML VIAL IVP SCH (23:00)
[2020-08-02 01:32] LABS: Red Cell Distribution Width 12.5 % (11.5-14.5)
[2020-08-02 01:34] LABS: Hematocrit 30.4 % (35.3-44.9); Hemoglobin 10.4 g/dL (11.5-15.4); Immature Platelets 4.2 % (1.1-6.1); Mean Corpuscular HGB Conc 34.2 g/dL (31.6-35.5); Mean Corpuscular Hemoglobin 30.1 pg (28.0-33.3); Mean Corpuscular Volume 87.9 fL (83.0-100.0); Mean Platelet Volume 10.2 fL (9.4-12.4); Red Blood Count 3.46 M/mcL (3.82-4.97); White Blood Count 4.4 K/mcL (4.3-11.1)
[2020-08-02 01:50] LABS: BUN/Creatinine Ratio 18 (6-26); Blood Urea Nitrogen 14 mg/dL (8-23); Calcium 8.2 mg/dL (8.6-10.3); Carbon Dioxide 27 mEq/L (23-29); Chloride 101 mEq/L (98-107); Glucose 119 mg/dL (70-105); Osmolality,Calculated 284 (280-300); Potassium 3.2 mEq/L (3.5-5.1); Sodium 136 mEq/L (136-145); eGFR For African Americans > 60 (> 60); eGFR For Non-African Americans > 60 (> 60)
[2020-08-02] MEDS: *HR* Heparin 5,000 UNIT/ML VIAL SQ SCH ×3 (05:46→21:02)
[2020-08-02] MEDS: Aspirin Enteric Coated 81 MG Tablet PO SCH (08:46)
[2020-08-02] MEDS: Hydrocortisone 10 MG TABLET PO SCH ×2 (08:47→14:28)
[2020-08-02] MEDS: Cyanocobalamin (B-12) 1,000 MCG TABLET PO SCH (08:47)
[2020-08-02] MEDS: Scopolamine Patch 1.5 MG PATCH.TD72 TD SCH (08:48)
[2020-08-02 10:37] LABS: IFE Reflexed NOT DONE
[2020-08-02] MEDS: Artificial Tears SOLN 15 ML BOTTLE BOTH EYES PRN (23:31)
[2020-08-03] MEDS: *HR* Heparin 5,000 UNIT/ML VIAL SQ SCH ×3 (05:33→22:04)
[2020-08-03] MEDS: Cyanocobalamin (B-12) 1,000 MCG TABLET PO SCH (08:02)
[2020-08-03] MEDS: Hydrocortisone 10 MG TABLET PO SCH ×3 (08:02→16:26)
[2020-08-03] MEDS: Aspirin Enteric Coated 81 MG Tablet PO SCH (08:02)
[2020-08-03] MEDS: Potassium Chloride Elixir 20 MEQ/15 ML UDC PO SCH (13:52)
[2020-08-04] MEDS: *HR* Heparin 5,000 UNIT/ML VIAL SQ SCH ×3 (06:13→21:05)
[2020-08-04 08:53] LABS: Basophils % 0.2 %; Immature Granulocytes % 0.4 % (0-4); Mean Platelet Volume 10.8 fL (9.4-12.4)
[2020-08-04 08:55] LABS: Eosinophils # 0.3 K/mcL (0.0-0.6); Eosinophils % 4.5 %; Hematocrit 34.2 % (35.3-44.9); Hemoglobin 11.6 g/dL (11.5-15.4); Immature Platelets 7.5 % (1.1-6.1); Lymphocytes # 2.4 K/mcL (0.6-4.6); Lymphocytes % 42.2 %; Mean Corpuscular HGB Conc 33.9 g/dL (31.6-35.5); Mean Corpuscular Hemoglobin 30.4 pg (28.0-33.3); Mean Corpuscular Volume 89.8 fL (83.0-100.0); Monocytes # 0.6 K/mcL (0.0-1.3); Monocytes % 10.6 %; Neutrophils # 2.4 K/mcL (1.6-8.9); Platelet Count 111 K/mcL (140-400); Red Blood Count 3.81 M/mcL (3.82-4.97); Segmented Neutrophils % 42.1 %; White Blood Count 5.6 K/mcL (4.3-11.1)
[2020-08-04 08:59] LABS: BUN/Creatinine Ratio 12 (6-26); Blood Urea Nitrogen 11 mg/dL (8-23); Calcium 8.4 mg/dL (8.6-10.3); Carbon Dioxide 29 mEq/L (23-29); Chloride 101 mEq/L (98-107); Glucose 82 mg/dL (70-105); Magnesium 1.6 mg/dL (1.6-2.6); Osmolality,Calculated 280 (280-300); Phosphorous 2.8 mg/dL (2.7-4.5); Platelet Estimate Slight Decrease (Normal); Potassium 3.9 mEq/L (3.5-5.1); Sodium 136 mEq/L (136-145); eGFR For African Americans > 60 (> 60); eGFR For Non-African Americans 60 (> 60)
[2020-08-04] MEDS: Aspirin Enteric Coated 81 MG Tablet PO SCH (11:10)
[2020-08-04] MEDS: Cyanocobalamin (B-12) 1,000 MCG TABLET PO SCH (11:10)
[2020-08-04] MEDS: Hydrocortisone 10 MG TABLET PO SCH (14:41)
[2020-08-05] MEDS ORDERED: Melatonin 3 MG TABLET PO PRN (00:35)
[2020-08-05 04:53] LABS: Eosinophils % 4.4 %
[2020-08-05 04:55] LABS: Eosinophils # 0.2 K/mcL (0.0-0.6); Hematocrit 30.3 % (35.3-44.9); Hemoglobin 10.3 g/dL (11.5-15.4); Immature Granulocytes % 0.5 % (0-4); Immature Platelets 6.8 % (1.1-6.1); Lymphocytes # 1.9 K/mcL (0.6-4.6); Mean Corpuscular Hemoglobin 30.2 pg (28.0-33.3); Mean Corpuscular Volume 88.9 fL (83.0-100.0); Mean Platelet Volume 11.2 fL (9.4-12.4); Monocytes # 0.5 K/mcL (0.0-1.3); Monocytes % 12.6 %; Neutrophils # 1.7 K/mcL (1.6-8.9); Red Blood Count 3.41 M/mcL (3.82-4.97); Red Cell Distribution Width 12.9 % (11.5-14.5); Segmented Neutrophils % 39.5 %; White Blood Count 4.3 K/mcL (4.3-11.1)
[2020-08-05 05:10] LABS: BUN/Creatinine Ratio 13 (6-26); Blood Urea Nitrogen 12 mg/dL (8-23); Calcium 8.1 mg/dL (8.6-10.3); Carbon Dioxide 27 mEq/L (23-29); Chloride 101 mEq/L (98-107); Glucose 84 mg/dL (70-105); Magnesium 1.6 mg/dL (1.6-2.6); Osmolality,Calculated 279 (280-300); Phosphorous 3.3 mg/dL (2.7-4.5); Potassium 3.6 mEq/L (3.5-5.1); Sodium 135 mEq/L (136-145); eGFR For African Americans > 60 (> 60); eGFR For Non-African Americans 60 (> 60)
[2020-08-05 05:16] LABS: Platelet Count 98 K/mcL (140-400); Platelet Estimate Slight Decrease (Normal)
[2020-08-05] MEDS: *HR* Heparin 5,000 UNIT/ML VIAL SQ SCH (06:14)
[2020-08-05] MEDS: Potassium Chloride Elixir 20 MEQ/15 ML UDC PO SCH (07:52)
[2020-08-05] MEDS: Aspirin Enteric Coated 81 MG Tablet PO SCH (07:57)
[2020-08-05] MEDS: Cyanocobalamin (B-12) 1,000 MCG TABLET PO SCH (07:57)
[2020-08-05] MEDS: Scopolamine Patch 1.5 MG PATCH.TD72 TD SCH (07:57)
[2020-08-05] MEDS: Hydrocortisone 10 MG TABLET PO SCH (07:58)
[2020-08-05 10:17] VITALS: BP 100/62
== END 2020-08-05 12:09 | DRG 640 ==
LOC: CDU → SUATTDRO 22:54 → CDU 07-18 00:03 → 3NENU 07-18 14:49 → SUATTDRO 07-19 16:51 → 2NNU 07-27 02:39 → ICNU 07-27 09:55 → 3ANU 07-29 16:01
PROVIDERS: ADMIT Internal Medicine; ATTEND Internal Medicine